=== PATIENT | female | born 1980 | race Caucasian/White ===

== ENCOUNTER 2016-04-03 05:17 | Inpatient (IN) | payer OTHER ==
[~2016-04-03] VITALS: Ht 160 cm; Wt 85.2 kg
[2016-04-03 05:36] VITALS: Ht 160 cm; Wt 85.2 kg
[2016-04-03 05:37] VITALS: BP 123/74; PULSE 73; RESP 18
[2016-04-03] MEDS ORDERED: OXYTOCIN 30 UNITS/LR 500 ML IV PRN (06:00)
[2016-04-03] MEDS ORDERED: OXYTOCIN 30 UNITS/LR 500 ML IV SCH (06:00)
[2016-04-03] MEDS ORDERED: METHYLERGONOVINE 0.2 MG INJ IM PRN (06:00)
[2016-04-03] MEDS ORDERED: MISOPROSTOL 200 MCG TAB PR PRN ×2 (06:00→10:30)
[2016-04-03] MEDS ORDERED: CARBOPROST 250 MCG INJ IM PRN (06:00)
[2016-04-03] MEDS: LACTATED RINGER'S 1,000 ML IV SCH ×5 (06:06→21:58)
[2016-04-03 06:43] LABS: INR 0.92; PROTIME 12.4 Sec (12.2-14.2)
[2016-04-03 06:48] LABS: BASOPHILS % 0.2 % (0.0-2.0); EOSINOPHILS % 0.9 % (0.0-7.0); HEMATOCRIT 32.4 % (37.0-47.0); HEMOGLOBIN 11.4 g/dl (12.0-16.0); LYMPHOCYTES # 1.1 10^3/ul (0.8-2.9); LYMPHOCYTES % 27.1 % (15.0-51.0); MEAN CORPUSCULAR HEMOGLOBIN 29.1 pg (29.0-33.0); MEAN CORPUSCULAR HGB CONC 35.1 g/dl (32.0-37.0); MEAN CORPUSCULAR VOLUME 82.8 fl (82.0-101.0); MEAN PLATELET VOLUME 8.4 fl (7.4-10.4); MONOCYTE # 0.2 10^3/ul (0.3-0.9); MONOCYTES % 5.6 % (0.0-11.0); NEUTROPHIL # 2.8 10^3/ul (1.6-7.5); NEUTROPHILS % 66.2 % (39.0-77.0); PLATELET COUNT 159 10^3/UL (140-440); RED BLOOD COUNT 3.92 10^6/ul (4.20-5.40); RED CELL DISTRIBUTION WIDTH 13.9 % (11.5-14.5); UNCORRECTED WBC 4.2 10^3/ul (4.8-10.8); WHITE BLOOD COUNT 4.2 10^3/ul (4.8-10.8)
[2016-04-03] MEDS ORDERED: OXYTOCIN 30 UNITS/LR 500 ML BAG IV ONE (07:00)
[2016-04-03] MEDS ORDERED: CITRIC ACID/NA CITRATE 30 ML CUP ONE (07:18)
[2016-04-03 07:23] LABS: CONDITION 1
[2016-04-03] MEDS ORDERED: CITRIC ACID/NA CITRATE 30 ML CUP PO ONE (07:30)
[2016-04-03] MEDS ORDERED: morphine SULFATE/PF (10 MG/10 ML) INJ ONE (07:32)
[2016-04-03] MEDS ORDERED: FENTAnyl 50 MCG/ML VIAL ONE (07:33)
[2016-04-03] MEDS ORDERED: PHENYLephrine (100 MCG/ML) 5ML SYG ONE (07:40)
[2016-04-03] MEDS ORDERED: LACTATED RINGER'S 1,000 ML IV PRN (08:00)
[2016-04-03] MEDS ORDERED: DIPHENHYDRAMINE 50 MG INJ IV PRN (08:00)
[2016-04-03] MEDS ORDERED: ZOLPIDEM 5 MG TAB PO PRN (08:00)
[2016-04-03] MEDS ORDERED: ONDANSETRON 4 MG INJ IV PRN (08:00)
[2016-04-03] MEDS ORDERED: HYDROmorphONE 1 MG/ML SYG IV PRN ×2 (08:00)
[2016-04-03] MEDS ORDERED: NALOXONE (0.4 MG/ML) INJ IV PRN (08:00)
[2016-04-03] MEDS: CEFAZOLIN 2 GM/50 ML (PMX) 50 ML IV SCH ×2 (08:55→09:53)
[2016-04-03] MEDS ORDERED: ONDANSETRON 4 MG INJ ONE (09:28)
[2016-04-03] MEDS ORDERED: NA PHOSPHATE/BIPHOS 133 ML ENEMA PR PRN (10:30)
[2016-04-03] MEDS ORDERED: OXYCODONE/ACETAMINOPHEN (5/325) TAB PO PRN (10:30)
--- NOTE | 2016-04-03 10:54 | PREOPHP ---
DATE OF ADMISSION: 04/03/2016 HISTORY OF PRESENT ILLNESS: The patient is a 35-year-old 5, para 3, previous anton curry. at 39 weeks who desires repeat delivery. The risks, benefits, indications, and alternatives of procedure including but not limited to risk of infection, bleeding, damage to o ther organs, bowel, bladder, hernia formation, scar formation, blood transfusions, damage to intesti benita or bladder were discussed with the patient. She also desires to have tubal ligation. The risks o f failure of the procedure were discussed with the patient and the fact that it is permanent and irr eversible was discussed with patient. She was allowed to ask questions, all her questions were answ ered, and informed consent has been obtained. PAST MEDICAL HISTORY: None. PAST SURGICAL HISTORY: delivery. ALLERGIES: NO KNOWN DRUG ALLERGIES. MEDICATIONS: 1. vitamins. 2. Iron. REVIEW OF SYSTEMS: Significant as above. PHYSICAL EXAMINATION: VITAL SIGNS: Stable. Afebrile. GENERAL: In no acute distress. HEENT: No thyromegaly. HEART: Regular rate and rhythm. LUNGS: Clear to auscultation bilaterally. ABDOMEN: Soft, gravid. EXTREMITIES: No edema. ASSESSMENT: 1. Term . 2. History of previous delivery. 3. Desires permanent sterilization. PLAN: Repeat delivery and tubal ligation. Informed consent has been obtained. Dictated By: PAULA HICSK/MANSOOR Conf#: [id number] DID#: [id number]
[2016-04-03 11:51] LABS: CONDITION 1; EOSINOPHILS % 0.3 % (0.0-7.0); HEMATOCRIT 30.7 % (37.0-47.0); HEMOGLOBIN 10.6 g/dl (12.0-16.0); LYMPHOCYTES # 0.6 10^3/ul (0.8-2.9); LYMPHOCYTES % 16.4 % (15.0-51.0); MEAN CORPUSCULAR HEMOGLOBIN 28.7 pg (29.0-33.0); MEAN CORPUSCULAR HGB CONC 34.4 g/dl (32.0-37.0); MEAN CORPUSCULAR VOLUME 83.6 fl (82.0-101.0); MEAN PLATELET VOLUME 7.7 fl (7.4-10.4); MONOCYTE # 0.1 10^3/ul (0.3-0.9); MONOCYTES % 3.3 % (0.0-11.0); NEUTROPHIL # 3.1 10^3/ul (1.6-7.5); PLATELET COUNT 149 10^3/UL (140-440); RED BLOOD COUNT 3.68 10^6/ul (4.20-5.40); RED CELL DISTRIBUTION WIDTH 13.8 % (11.5-14.5); UNCORRECTED WBC 3.9 10^3/ul (4.8-10.8); WHITE BLOOD COUNT 3.9 10^3/ul (4.8-10.8)
[2016-04-03 13:15] VITALS: BP 136/69; PULSE 67; RESP 20
[2016-04-03 13:45] VITALS: BP 131/67; PULSE 70; RESP 18
[2016-04-03] MEDS: IBUPROFEN 600 MG TAB PO SCH ×2 (14:43→17:00)
[2016-04-03] MEDS: KETOROLAC 30 MG INJ IV PRN ×2 (14:44→23:15)
[2016-04-03 15:56] VITALS: BP 125/77; PULSE 64; RESP 20
[2016-04-03] MEDS: LANOLIN 7 GM TUBE TOP PRN ×2 (16:57→21:58)
--- NOTE | 2016-04-03 19:37 | OPR ---
DATE OF OPERATION: PREOPERATIVE DIAGNOSES: 1. Term , history of previous delivery, desires repeat delivery. 2. Desires permanent sterilization. POSTOPERATIVE DIAGNOSES: 1. Term , history of previous delivery, desires repeat delivery. 2. Desires permanent sterilization. OPERATION PERFORMED: Repeat delivery and tubal ligation by bilateral salpingectomy. SURGEON: Paula Hairston MD RUBBER AND POUNDER: Yanick Watson MD ESTIMATED BLOOD LOSS: 700 COMPLICATIONS: None. CONSENT: Risks, benefits, indications, alternatives of procedure including but not limited to risk of infection; bleeding; damage to other organs, bowel, bladder; hernia formation; scar formation; po ssibility of blood transfusions were discussed with the patient. She was allowed to ask questions. All her questions were answered. Informed consent was obtained. DESCRIPTION OF PROCEDURE: She was taken to the operating room, and spinal anesthesia was induced. She was prepped and draped in usual sterile fashion. Surgical timeout was done. Anesthesia was reggie socorro to be adequate. With the permission of the anesthesiologist, a Pfannenstiel skin incision was d eveloped, and the incision was taken down in layers. The fascia was cut, undermined, from the underlying muscle using sharp and blunt dissection. All the bleeders were cauterized, and mora toneum was entered bluntly. A low transverse incision was developed over the uterus, and a viable i nfant was delivered in vertex presentation. Amniotic fluid clear and adequate. The cord was clampe d and cut, and baby was handed to awaiting team. Placenta was then delivered. Uterus was exteriori zed, wrapped in a moist lap. Inside of uterus was cleaned using a dry lap. All debris and membrane s were removed. Uterine incision was then closed using #1 Monocryl in 2 layers. There was a hemato ma formed on the left broad ligament, and uterine artery ligation as well as extra [id number] s utures were placed to stop the hematoma. The 6 cm distal end of the right tube was ligated using 0 plain 3 times and ligated for short cut and sent to pathology. Same procedure was done on the contr alateral side. Uterus was inserted back inside abdominal cavity, and irrigation was done. Gutters were cleaned. Uterine incision was evaluated carefully with no further bleeding. Rectus muscle, re ctus fascia and peritoneum were evaluated. All bleeders were cauterized. Peritoneum was closed usi ng 2-0 Monocryl, the rectus muscles reapproximated using 2-0 Monocryl. Rectus fascia was closed usi ng #1 Vicryl, and subcutaneous tissue was cleaned, irrigated, all bleeders cauterized and closed usi ng 0 plain and then the skin closed using 4-0 Monocryl. All counts correct. Dictated By: PAULA HICKS/MANSOOR Conf#: [id number] DID#: [id number]
[2016-04-03 20:15] VITALS: BP 128/75; PULSE 86; RESP 20
[2016-04-03] MEDS: SENNA/DOCUSATE NA (8.6MG/50MG) TAB PO SCH ×2 (21:00→21:58)
[2016-04-04] MEDS: LACTATED RINGER'S 1,000 ML IV SCH ×4 (02:21→13:38)
[2016-04-04 04:30] VITALS: BP 116/64; PULSE 81; RESP 18
[2016-04-04] MEDS: IBUPROFEN 600 MG TAB PO SCH ×5 (06:00→20:40)
[2016-04-04] MEDS: KETOROLAC 30 MG INJ IV PRN (06:05)
[2016-04-04 08:00] VITALS: BP 108/74; PULSE 76; RESP 17
[2016-04-04] MEDS: SENNA/DOCUSATE NA (8.6MG/50MG) TAB PO SCH ×2 (08:22→20:40)
[2016-04-04 08:27] LABS: BASOPHILS % 0.3 % (0.0-2.0); EOSINOPHILS % 0.3 % (0.0-7.0); HEMATOCRIT 26.2 % (37.0-47.0); LYMPHOCYTES # 0.7 10^3/ul (0.8-2.9); MEAN CORPUSCULAR HGB CONC 34.4 g/dl (32.0-37.0); MEAN CORPUSCULAR VOLUME 84.1 fl (82.0-101.0); MEAN PLATELET VOLUME 8.3 fl (7.4-10.4); MONOCYTE # 0.3 10^3/ul (0.3-0.9); MONOCYTES % 5.8 % (0.0-11.0); NEUTROPHIL # 3.8 10^3/ul (1.6-7.5); NEUTROPHILS % 78.6 % (39.0-77.0); PLATELET COUNT 121 10^3/UL (140-440); RED BLOOD COUNT 3.11 10^6/ul (4.20-5.40); UNCORRECTED WBC 4.9 10^3/ul (4.8-10.8); WHITE BLOOD COUNT 4.9 10^3/ul (4.8-10.8)
[2016-04-04 08:35] LABS: CONDITION 1
--- NOTE | 2016-04-04 08:40 | QN ---
Documentation Comment No complaint. Afebrile VSS Abdomen soft Hgb 9.0 POD #1 Stable Ambulate Advance diet. CHERYL WINSTON MD Apr 04, 2016 08:40
[2016-04-04] MEDS ORDERED: MAGNESIUM HYDROXIDE 30ML CUP PO ONE (09:00)
[2016-04-04] MEDS ORDERED: INFLUENZA VIRUS VACCINE 0.5 ML (DISPENSING) IM* ONE (09:00)
[2016-04-04] MEDS: OXYCODONE/ACETAMINOPHEN (5/325) TAB PO PRN ×3 (09:59→22:37)
[2016-04-04 16:00] VITALS: BP 115/69; PULSE 79; RESP 18
[2016-04-04] MEDS: CEFAZOLIN 2 GM/50 ML (PMX) 50 ML IV SCH (18:08)
[2016-04-04 20:00] VITALS: BP 135/69; PULSE 84; RESP 19
[2016-04-04] MEDS: ONDANSETRON 4 MG INJ IV SCH (22:00)
[2016-04-04] MEDS ORDERED: SOD CHLORIDE 0.9% 500 ML IV ONE (22:00)
[2016-04-04] MEDS: DEXTROSE 5%-LR 1,000 ML IV SCH (23:43)
[2016-04-05 00:30] VITALS: BP 107/67; PULSE 64; RESP 18
[2016-04-05] MEDS: ONDANSETRON 4 MG INJ IV SCH ×6 (02:00→22:00)
[2016-04-05] MEDS: MINERAL OIL 30ML CUP PO SCH ×3 (02:41→21:30)
[2016-04-05] MEDS: METOCLOPRAMIDE 10 MG INJ IV SCH ×5 (02:42→21:30)
[2016-04-05 03:46] VITALS: BP 113/61; PULSE 64; RESP 18
[2016-04-05] MEDS: IBUPROFEN 600 MG TAB PO SCH ×3 (06:00→18:00)
[2016-04-05] MEDS: DEXTROSE 5%-LR 1,000 ML IV SCH ×3 (07:44→17:49)
[2016-04-05 08:15] VITALS: BP 119/71; PULSE 69; RESP 18
[2016-04-05] MEDS: SENNA/DOCUSATE NA (8.6MG/50MG) TAB PO SCH ×2 (09:00→21:30)
--- NOTE | 2016-04-05 09:07 | PN ---
Date/Time of Note Date/Time of Note DATE: 04/05/16 TIME: 09:02 24 hour Interval Summary no BM, No Flatus, denies N/V/F/C. mild lochia had similar experience with last C/S Physical Exam Vital Signs Date Time Temp Pulse Resp B/P Pulse Ox O2 Delivery O2 Flow Rate FiO2 04/05/16 03:46 98.2 64 18 113/61 Room Air Intake and Output 04/04/16 04/04/16 04/05/16 15:00 23:00 07:00 Intake Total 810 ml 1000 ml Output Total 2050 ml Balance -1240 ml 1000 ml VTE Prophylaxis VTE Prophylaxis Intervention: ambulation VTE Confirmed-Overlap Tx Rcvd Pt Rcvd Overlap Therapy: No Reason for no Overlap Therapy: Contraindicated Lines/Catheters IV Catheter Type: Peripheral IV Bowman in Place: No Results Result Diagram: 04/04/16 0700 Assessment/Plan Chief Complaint/Hosp Course POD # 1 C/O gas pain NAD Ambulating well AF, VSS Abd: soft, mildly distended Dressing intact mild lochia Ext: Mild edema Bilateral Problems: Assessment/Plan NPO IV hydration KUB Increased ambulation PAULA FITZGERALD MD Apr 05, 2016 09:07
--- NOTE | 2016-04-05 09:16 | RADRPT ---
PROCEDURE: XR Abdomen. CLINICAL INDICATION: Abdominal pain TECHNIQUE: Two views of the abdomen are available for review. COMPARISON: None. FINDINGS: There is mild diffuse gaseous distension of bowel loops, suggesting ileus. No radiographic evidence to indicate bowel obstruction is seen. There is relative paucity of bowel gas in the pelvis. Ther e are no abnormal calcifications overlying the urinary tracts. The osseous structures are unremarkab le. IMPRESSION: 1. There is mild diffuse gaseous distension of bowel loops, suggesting ileus. No radiographic evid ence to indicate bowel obstruction is seen. 2. There is relative paucity of bowel gas in the pelvis, of uncertain significance - pelvic mass or significant urinary bladder distension/urinary retention is not excluded. RPTAT: QQ .Carlos Braun MD, MD Date Time Electronically viewed and signed by .Carlos Braun MD, on 04/05/2016 09:16 .R/
[2016-04-05] MEDS ORDERED: morphine 4 MG/ML VIAL IV PRN (09:30)
[2016-04-05] MEDS: KETOROLAC 30 MG INJ IV PRN ×3 (09:55→21:31)
[2016-04-05 11:41] LABS: BASOPHILS % 0.2 % (0.0-2.0); EOSINOPHILS % 0.4 % (0.0-7.0); HEMATOCRIT 24.7 % (37.0-47.0); HEMOGLOBIN 8.1 g/dl (12.0-16.0); LYMPHOCYTES # 0.8 10^3/ul (0.8-2.9); LYMPHOCYTES % 16.2 % (15.0-51.0); MEAN CORPUSCULAR HEMOGLOBIN 28.4 pg (29.0-33.0); MEAN CORPUSCULAR HGB CONC 32.8 g/dl (32.0-37.0); MEAN CORPUSCULAR VOLUME 86.7 fl (82.0-101.0); MEAN PLATELET VOLUME 9.6 fl (7.4-10.4); MONOCYTE # 0.3 10^3/ul (0.3-0.9); MONOCYTES % 4.9 % (0.0-11.0); NEUTROPHILS % 78.1 % (39.0-77.0); PLATELET COUNT 126 10^3/UL (140-415); RED BLOOD COUNT 2.85 10^6/ul (4.20-5.40); RED CELL DISTRIBUTION WIDTH 13.6 % (11.5-14.5); WHITE BLOOD COUNT 5.1 10^3/ul (4.8-10.8)
[2016-04-05 12:00] VITALS: BP 105/59; PULSE 72; RESP 18
[2016-04-05 15:49] VITALS: BP 132/71; PULSE 65; RESP 18
[2016-04-05 20:00] VITALS: BP 119/76; PULSE 68; RESP 18
[2016-04-05] MEDS: LANOLIN 7 GM TUBE TOP PRN (23:13)
[2016-04-06] MEDS: ONDANSETRON 4 MG INJ IV SCH ×4 (01:38→14:00)
[2016-04-06] MEDS: DEXTROSE 5%-LR 1,000 ML IV SCH ×2 (01:44→09:17)
[2016-04-06 03:49] VITALS: BP 125/67; PULSE 61; RESP 20
[2016-04-06] MEDS: METOCLOPRAMIDE 10 MG INJ IV SCH ×2 (05:20→10:00)
[2016-04-06] MEDS: IBUPROFEN 600 MG TAB PO SCH ×4 (05:46→14:28)
[2016-04-06 09:00] VITALS: BP 128/64; PULSE 55; RESP 18
[2016-04-06] MEDS ORDERED: MEASLES,MUMPS,RUBELLA VACCINE INJ SC* ONE (09:00)
[2016-04-06] MEDS: MINERAL OIL 30ML CUP PO SCH (09:00)
[2016-04-06] MEDS ORDERED: DIPHTH/TET/ACEL PERTUSS (ADULT) 0.5 ML VIAL IM* ONE (09:00)
[2016-04-06] MEDS: SENNA/DOCUSATE NA (8.6MG/50MG) TAB PO SCH (09:17)
[2016-04-06] MEDS: OXYCODONE/ACETAMINOPHEN (5/325) TAB PO PRN (10:53)
--- NOTE | 2016-04-06 13:40 | DS ---
Date/Time of Note Date/Time of Note DATE: 04/06/16 TIME: 13:39 Discharge Summary Admission/Discharge Info Admit Date/Time Apr 03, 2016 at 05:17 Discharge Date/Time Final Diagnosis Repeat c/section Full term Patient Condition: Stable Procedures Repeat c/section+Bilateral tubal ligation Hospital Course POD # 1 C/O gas pain NAD Ambulating well AF, VSS Abd: soft, mildly distended Dressing intact mild lochia Ext: Mild edema Bilateral CORKY GOOD M.D. Apr 06, 2016 13:40
--- NOTE | 2016-04-06 13:42 | QN ---
Documentation Comment POD# 3is stable afebrile tolerates diet No VB +BM +voids No sign of Depression VS stable Gen NAD Abd soft NT ND Incision intact Genitalia No blood at perinium --->discharge Home --->precautions discussed with patient --->patient's questions answered CORKY GOOD M.D. Apr 06, 2016 13:42
== END 2016-04-06 14:46 | disposition home or self-care (01) | DRG 766 ==
LOC: L-D 05:17 → PP1 13:12
PROVIDERS: ADMIT Specialist; ATTEND Specialist
PROC: 0UT70ZZ Resection of Bilateral Fallopian Tubes, Open Approach (ICD-10-PCS; 2016-04-03)
PROC: 10D00Z1 Extraction of Products of Conception, Low, Open Approach (ICD-10-PCS; principal; 2016-04-03 07:30)
PROC: 3E00X4Z Introduction of Serum, Toxoid and Vaccine into Skin and Mucous Membranes, External Approach (ICD-10-PCS; 2016-04-06)
DX: O34.211 Maternal care for low transverse scar from previous cesarean delivery (principal); Z23 Encounter for immunization; Z30.2 Encounter for sterilization; Z3A.39 39 weeks gestation of pregnancy; Z37.0 Single live birth
CPT/HCPCS: 74000; 85025; 85610; 85730; 86592; 86850; 86900; 86901; 87340; 88302; 90686; 90715; 99464; J0690; J1200; J1885; J2274; J2370; J2405; J2590; J2765; J3010; J7040; J7120; J7121